=== PATIENT | male | born 1980 | race Caucasian/White ===

== ENCOUNTER 2016-03-29 12:39 | Emergency (ER) | payer SELFPAY ==
[~2016-03-29] VITALS: Ht 190.5 cm; Wt 82.0 kg
[~2016-03-29 12:39] MED LIST: CLIN1CAP6 PO; IBUP800T23 PO; LIDO2%S2 PO
[2016-03-29 12:40] VITALS: BP 119/63; PULSE 86; RESP 20; TEMP 98; O2SAT 96
[2016-03-29] MEDS ORDERED: MAGICADU2 SWISH-SPIT (12:56)
[2016-03-29] MEDS ORDERED: PERI0.126 SWISH-SPIT (12:56)
[2016-03-29] MEDS ORDERED: AMOX500T PO (12:56)
[2016-03-29] MEDS ORDERED: IBUP800T23 PO (12:56)
--- NOTE | 2016-03-29 12:56 | PD ---
HPI Chief Complaint: Oral / Dental Pain or Problem Time Seen by Provider: 12:53 Travel History International Travel<30 days: No Contact w/Intl Traveler<30days: No Traveled to known affect area: No History of Present Illness HPI 35-year-old male presents emergency Department with complaint of left lower tooth pain 6 days. Denies dental trauma. Reports the teeth are eroding away and becoming exposed and they have become more painful. Pain is aggravated with eating, drinking, applying pressure to the teeth. Took his neighbors amoxicillin for 2 days with minimal relief of symptoms. Has been taking ibuprofen and Tylenol as directed with no relief of pain. Has not tried any other treatments to relieve the symptoms. Denies facial swelling or erythema. Denies fever, chills, nausea, vomiting. Denies difficulty swallowing. Denies allergies. Denies significant past medical history. No other modifying factors or associated signs and symptoms. PFSH Past Medical History Tetanus Vaccination: < 5 Years Influenza Vaccination: No Past Surgical History Surgical History: No Previous Surgery Social History Alcohol Use: No Tobacco Use: No Substance Use: No Allergies-Medications (Allergen,Severity, Reaction): Coded Allergies: No Known Allergies (Unverified , 03/29/16) Reported Meds & Prescriptions Reported Meds & Active Scripts Active Amoxicillin 500 Mg Tab 500 Mg PO BID 10 Days Magic Mouthwash Adult Liq (Multi-Ingredient Mouthwash/Gargle) 120 Ml Susp 5 Ml SWISH-SPIT Q3HR NEB PRN Each 5 mL contains: Nystatin 200,000 units, Diphenhydramine 4.25 mg, Viscous Lidocaine 10 mg, Dunn syrup 0.8 mL Peridex Liq (Chlorhexidine Gluconate (Mouth) Liq) 0.12% Soln 15 Ml SWISH-SPIT BID 10 Days Ibuprofen 800 Mg Tab 800 Mg PO Q6HR PRN Review of Systems Except as stated in HPI: all other systems reviewed are Neg Physical Exam Narrative GENERAL: Well-nourished, well-developed male patient, in no acute distress; afebrile, nontoxic-appearing SKIN: Warm and dry. HEAD: Atraumatic. Normocephalic. No facial edema, erythema, tenderness on palpation. No lymphadenopathy. EYES: Pupils equal and round. No scleral icterus. No injection or drainage. ENT: Mucosa pink and moist. Airway patent. MOUTH: Mucous membranes moist, no lesions, tongue and gums appear normal. Poor dentition throughout. Left lower teeth #18 and 19 with large dental caries and decay; with tenderness on palpation; surrounding gingiva is mildly edematous and without erythema, drainage, no obvious abscess. NECK: Trachea midline. No lymphadenopathy. CARDIOVASCULAR: Regular rate. RESPIRATORY: No accessory muscle use. GASTROINTESTINAL: Flat. MUSCULOSKELETAL: No obvious deformities. No clubbing. No cyanosis. No edema. NEUROLOGICAL: Awake and alert. Oriented 3. No obvious cranial nerve deficits. Motor grossly within normal limits. Normal speech. PSYCHIATRIC: Appropriate mood and affect; insight and judgment normal. Data Data Last Documented VS Vital Signs Date Time Temp Pulse Resp B/P Pulse Ox O2 Delivery O2 Flow Rate FiO2 03/29/16 12:40 98.0 86 20 119/63 96 Room Air MDM Medical Decision Making Medical Screen Exam Complete: Yes Emergency Medical Condition: Yes Medical Record Reviewed: Yes Differential Diagnosis Dental abscess, dentalgia, dental caries Narrative Course 35-year-old male physical exam consistent with possible dental abscesses to teeth #18 and 19. No obvious abscess noted. Both testes are tender on palpation and with large dental cavities and decay. No facial edema or erythema. Patient afebrile. Denies fever, chills, nausea, vomiting. Emergency dental information sheet provided. Amoxicillin,. Branscum Magic mouthwash, ibuprofen prescribed for home. Instructed patient to follow up with dentist. Patient is medically cleared and stable for discharge. Discussed reasons to return to the emergency department. Instructed patient to follow up with primary care provider. Patient agrees with treatment plan. The patients vital signs are stable and the patient is stable for outpatient follow-up and treatment. Patient discharged home, stable and in no acute distress. Diagnosis Primary Impression: Dentalgia Referrals: Dentist Primary Care Physician Patient Instructions: Dental Abscess (ED), Dental Caries (ED), General Instructions, Toothache (ED) Additional Instructions: Complete full course of antibiotics Ibuprofen as directed and as needed to reduce pain and inflammation Use Magic mouthwash rinse as directed and as needed to decrease pain Use Peridex as directed for oral hygiene Warm compresses to the affected area Follow-up with dentist Follow-up with primary care provider Return to emergency department immediately with worsening of symptoms Med/Other Pt SpecificInfo: Prescription(s) given Scripts Amoxicillin 500 Mg [id number] Mg PO BID 10 Days Ref 0 Prov:Rassi,Coleen K [employer] 03/29/16 Uvevwfpo-Naomznqwyhcqgzm-Ucqftvdhz Liq (Magic Mouthwash Adult Liq)120 Ml Susp5 Ml SWISH-SPIT Q3HR NEB PRN (PAIN SCALE 1 TO 10) #120 ML Ref 0 Each 5 mL contains: Nystatin 200,000 units, Diphenhydramine 4.25 mg, Viscous Lidocaine 10 mg, Dunn syrup 0.8 mL Prov:Coleen Ko 03/29/16 Chlorhexidine Gluconate (Mouth) Liq (Peridex Liq)0.12% Soln15 Ml SWISH-SPIT BID 10 Days Ref 0 Prov:Coleen Ko 03/29/16 Ibuprofen 800 Mg [id number] Mg PO Q6HR PRN (PAIN) #30 TAB Ref 0 Prov:Coleen Ko 03/29/16 Disposition: 01 DISCHARGE HOME Condition: Stable Coleen Ko Mar 29, 2016 12:56
== END 2016-03-29 13:01 | disposition home or self-care (01) ==
LOC: NEPB 12:39
DX: K08.89 Other specified disorders of teeth and supporting structures (principal); K02.9 Dental caries, unspecified
CPT/HCPCS: 99282

== ENCOUNTER 2016-12-02 11:38 | Emergency (ER) | payer SELFPAY ==
[~2016-12-02] VITALS: Ht 190.5 cm; Wt 76.0 kg
[~2016-12-02 11:38] MED LIST changes: +AMOX500T PO; -CLIN1CAP6 PO; -LIDO2%S2 PO; +MAGICADU2 SWISH-SPIT; +PERI0.126 SWISH-SPIT
[2016-12-02 11:40] VITALS: BP 112/73; PULSE 104; RESP 18; TEMP 98.9; O2SAT 97
--- NOTE | 2016-12-02 11:45 | PD ---
Physical Exam Date Seen by Provider: Dec 02, 2016 Time Seen by Provider: 11:43 Narrative 34-year-old male presents to emergency department with multiple wounds with erythema and drainage. He is on his hands and lower extremities. This has been ongoing for the past 7 days. Patient denies fever. He states the wounds are getting more numerous and are painful. He has no known drug allergies. Vital signs are stable. Patient is awaiting med bed placement. Data Data Last Documented VS Vital Signs Date Time Temp Pulse Resp B/P (MAP) Pulse Ox O2 Delivery O2 Flow Rate FiO2 12/02/16 11:40 98.9 104 18 112/73 (86) 97 MDM Medical Record Reviewed: Yes Supervised Visit with MICHI: Yes Condition: Stable Kel Yanez Dec 02, 2016 11:45
--- NOTE | 2016-12-02 12:12 | PD ---
HPI Chief Complaint: Skin Problem Time Seen by Provider: 11:59 Travel History International Travel<30 days: No Contact w/Intl Traveler<30days: No Traveled to known affect area: No History of Present Illness HPI Patient comes in to the emergency department complaining of a painful rash that began a week ago on his right forearm since spread to his right upper extremity and right lower extremity. Patient states he's been trying to keep it clean but continues to spread. States this started off as a small lesion and then start draining yellowish fluid. Patient reports tenderness around lesions without radiation. Denies anything making it better. States its continues to get worse. Denies any fevers, chest pain, shortness of breath, IV drug use, nausea, vomiting, or abdominal pain. Patient reports that he is currently homeless and sleeping various places. [facility] Past Medical History Medical History: Denies Significant Hx Social History Alcohol Use: No Tobacco Use: No Substance Use: No Allergies-Medications (Allergen,Severity, Reaction): Coded Allergies: No Known Allergies (Unverified , 12/02/16) Reported Meds & Prescriptions Reported Meds & Active Scripts Active Bactroban Topical (Mupirocin) 22 Gm Cream 1 Applic TOPICAL TID Bactrim DS (Sulfamethoxazole-Trimethoprim) 800-160 Mg Tab 1 Tab PO BID Amoxicillin 500 Mg Tab 500 Mg PO BID 10 Days Magic Mouthwash Adult Liq (Multi-Ingredient Mouthwash/Gargle) 120 Ml Susp 5 Ml SWISH-SPIT Q3HR NEB PRN Each 5 mL contains: Nystatin 200,000 units, Diphenhydramine 4.25 mg, Viscous Lidocaine 10 mg, Dunn syrup 0.8 mL Peridex Liq (Chlorhexidine Gluconate (Mouth) Liq) 0.12% Soln 15 Ml SWISH-SPIT BID 10 Days Ibuprofen 800 Mg Tab 800 Mg PO Q6HR PRN Review of Systems Except as stated in HPI: all other systems reviewed are Neg Physical Exam Narrative GENERAL: Well-developed, well nourished, in no acute distress, and non-ill appearing. SKIN: Impetigo appearing lesions noted right upper and lower extremity. Patient reports tenderness to palpation around the lesions. There is no crepitus. Scant yellowish drainage noted right lower extremity lesion. HEAD: Atraumatic. Normocephalic. EYES: Pupils equal and round. EOMI. No scleral icterus. No injection or drainage. ENT: No nasal bleeding or discharge. Mucous membranes pink and moist. NECK: Trachea midline. Supple. No nuclear rigidity. RESPIRATORY: No accessory muscle use. No respiratory distress. MUSCULOSKELETAL: No obvious deformities. No clubbing. No cyanosis. No edema. Full range of motion. NEUROLOGICAL: Awake and alert. No obvious cranial nerve deficits. Motor grossly within normal limits. Normal speech. PSYCHIATRIC: Appropriate mood and affect; insight and judgment normal. Data Data Last Documented VS Vital Signs Date Time Temp Pulse Resp B/P (MAP) Pulse Ox O2 Delivery O2 Flow Rate FiO2 12/02/16 12:16 12/02/16 11:40 98.9 104 18 97 MDM Medical Decision Making Medical Screen Exam Complete: Yes Emergency Medical Condition: Yes Differential Diagnosis Staph, impetigo, folliculitis, infected bug bites, other Narrative Course There were no blisters or bullae, target lesions, purpura or petechia, nor vesiculobullous or scarlatiniform lesions. The patient looks great and was non- ill appearing. There was no evidence to suggest scabies, cellulitis, folliculitis or abscess, Staph. Scalded Skin Syndrome, Toxic Shock, Toxic Epidermal necrolysis, Kawasaki, Measles, Rubella, cutaneous T cell lymphoma, Erythema Multiforme (minor or major). Plan of care was discussed with the patient and the patient is to follow up with their physician. The patient agreed with plan. Patient in no obvious distress upon re-evaluation. Patient was asked if they wanted to speak to my attending, which the patient did not wish to do at this time. Any questions/concerns in reference to patient diagnosis/condition discussed and clarified prior to patient's discharge. Reinforced sheer importance of close follow up with patient's primary physician or primary care clinic. Instructed patient to return to ED immediately, if symptoms return/ worsen. Pt showed understanding of above instructions. Further instructions and recommendations were detailed in discharge paperwork. Pt ambulated without difficulty out of ED at discharge. Diagnosis Primary Impression: Impetigo Referrals: [facility] Patient Instructions: General Instructions, Impetigo (ED) Additional Instructions: Follow-up with your primary care physician next week for reevaluation. Take all medication as prescribed. Use [id number] Tylenol and/or ibuprofen as needed for pain. Follow instructions on the packaging. Return to the emergency department if symptoms get worse. Med/Other Pt SpecificInfo: Prescription(s) given Scripts Mupirocin Topical (Bactroban Topical) 22 Gm Cream 1 APPLIC TOPICAL TID for Mgmt Bacterial Infection, #1 TUBE 0 Refills Prov: Rodrigo Gallegos MD 12/02/16 Sulfamethoxazole-Trimethoprim (Bactrim DS) 800-160 Mg Tab 1 TAB PO BID for Infection, #20 TAB 0 Refills Prov: Rodrigo Gallegos MD 12/02/16 Disposition: 01 DISCHARGE HOME Condition: Stable Donell Claros Dec 02, 2016 12:12
[2016-12-02] MEDS ORDERED: BACT800T5 PO (12:13)
[2016-12-02] MEDS ORDERED: MUPI2%T TOPICAL (12:13)
== END 2016-12-02 12:31 | disposition home or self-care (01) ==
LOC: NEPK 11:38
DX: L01.00 Impetigo, unspecified (principal); Z59.0 Homelessness
CPT/HCPCS: 99283